=== PATIENT | male | born 1995 ===

== ENCOUNTER 2018-06-03 11:45 | Emergency (ER) | payer SELFPAY ==
[2018-06-03] MEDS ORDERED: Acetaminophen 500 MG TAB ONE (11:50)
[2018-06-03] MEDS ORDERED: Ibuprofen 800 MG TAB ONE (11:50)
[2018-06-03] MEDS ORDERED: Dexamethasone 4 mg/ml Vial ONE (14:05)
== END 2018-06-03 14:18 | disposition home or self-care (01) ==
LOC: ERS 11:45
DX: J02.9 Acute pharyngitis, unspecified (principal)
CPT/HCPCS: 87081; 87430; 87804; 99283; J1100